=== PATIENT | male | born 1995 | race Caucasian/White ===

== ENCOUNTER 2016-10-11 08:26 | Day surgery (SDC) | payer BC ==
[~2016-10-11 08:26] MED LIST: Lactated Ringers 1,000 ML IV SCH; Lidocaine 1%/Sod Bicarbonate in NS 8.4% 1 ML Syringe IV PRN; Sodium Chloride 0.9% 10 ML Syringe FLUSH PRN
--- NOTE | 2016-10-11 09:05 | PCM.PREANE ---
Preanesthetic Assessment - Procedure Proposed Procedure: Diagnostic colonoscopy - Anesthesia/Transfusion/Family Hx Anesthesia History: No Prior Anesthesia Family History of Anesthesia Reaction: No Transfusion History: No Prior Transfusion(s) Intubation History: Unknown - Review of Systems General: No Symptoms Pulmonary: No Symptoms Cardiovascular: No Symptoms Gastrointestinal: Abdominal pain, Other (GERD) Neurological: No Symptoms Other: Reports: Easy Bruising - Physical Assessment NPO Status Date: 10/11/16 NPO Status Time: 00:30 O2 Sat by Pulse Oximetry: 97 Respiratory Rate: 16 Vital Signs: Last Vital Signs Temp 36.2 C 10/11/16 08:35 Pulse 59 L 10/11/16 08:35 Resp 16 10/11/16 08:35 BP 116/61 10/11/16 08:35 Pulse Ox 97 10/11/16 08:35 Height: 1.98 m Weight: 89.811 kg ASA Class: 2 Mental Status: Alert & Oriented x3 Airway Class: Mallampati = 1 Dentition: Reports: Normal Dentition Thyro-Mental Finger Breadths: 3 Mouth Opening Finger Breadths: 3 ROM/Head Extension: Full Lungs: Clear to auscultation, Normal respiratory effort Cardiovascular: Regular Rate, Regular Rhythm - Allergies Allergies/Adverse Reactions: Allergies Allergy/AdvReac Type Severity Reaction Status Date / Time No Known Allergies Allergy Verified 10/10/16 15:28 - Blood Blood Available: No Product(s) Available: None - Anesthesia Plan Pre-Op Medication Ordered: None - Acknowledgements Anesthesia Type Planned: MAC Pt an Appropriate Candidate for the Planned Anesthesia: Yes Alternatives and Risks of Anesthesia Discussed w Pt/Guardian: Yes Pt/Guardian Understands and Agrees with Anesthesia Plan: Yes PreAnesthesia Questionnaire - Past Health History Medical/Surgical History: Denies Medical/Surgical History HEENT History: Reports: None Cardiovascular History: Reports: None Respiratory History: Reports: None Gastrointestinal History: Reports: GERD, Other (See Below) Other Gastrointestinal History: abdominal pain Genitourinary History: Reports: Other (See Below) Other Genitourinary History: dysuria, left testicular pain OUTDOOR ADVENTURE GUIDES History: Reports: None Musculoskeletal History: Reports: None Neurological History: Reports: None Psychiatric History: Reports: None Endocrine/Metabolic History: Reports: None Hematologic History: Reports: None Immunologic History: Reports: None Oncologic (Cancer) History: Reports: None Dermatologic History: Reports: None - Past Surgical History Head Surgeries/Procedures: Reports: None HEENT Surgical History: Reports: None Cardiovascular Surgical History: Reports: None Respiratory Surgical History: Reports: None GI Surgical History: Reports: None Female Surgical History: Reports: None Male Surgical History: Reports: None Oncologic Surgical History: Reports: None Dermatological Surgical History: Reports: None - SUBSTANCE USE Smoking Status *Q: Never Smoker Second Hand Smoke Exposure: No Days Per Week of Alcohol Use: 0 Recreational Drug Use History: No - HOME MEDS Home Medications: Home Meds . [No Known Home Meds] 10/01/14 [History] - CURRENT (IN HOUSE) MEDS Current Meds: Current Medications Lactated Ringer's (Ringers, Lactated) 1,000 mls @ 125 mls/hr IV ASDIRECTED [facility] Last Admin: 10/11/16 08:45 Dose: 125 mls/hr Lidocaine/Sodium Bicarbonate (Buffered Lidocaine 1% In Ns 8.4%) 0.25 ml IV ONETIME PRN PRN Reason: Prior to IV Start Last Admin: 10/11/16 08:45 Dose: 0.25 ml Sodium Chloride (Saline Flush) 10 ml FLUSH ASDIRECTED PRN PRN Reason: Keep Vein Open
[2016-10-11] MEDS ORDERED: Propofol 200 MG/20 ML SDV ONE ×2 (09:20→10:05)
[2016-10-11] MEDS ORDERED: fentaNYL 100 MCG/2 ML SDV ONE (09:20)
[2016-10-11] MEDS ORDERED: Lidocaine 1% 4 ML ONE (09:21)
--- NOTE | 2016-10-11 10:00 | PCM.OPNOTE ---
- General Post-Op/Procedure Note Date of Surgery/Procedure: 10/11/16 Operative Procedure(s): Colonoscopy with ileal and rectal biopsies Findings: Normal examination, slightly prominent ileal payers patches Pre Op Diagnosis: Chronic diarrhea Post-Op Diagnosis: Same Anesthesia Technique: MAC, Moderate sedation Primary Surgeon: Colby Bloom Pathology: Ileal and rectal biopsies random 2 each EBL in mLs: 0 Complications: None Condition: Good Free Text/Narrative:: After adequate IV sedation and analgesia was obtained patient was placed on his left side. Perianal inspection and digital rectal examination were performed and were normal. A lubricated colonoscope was inserted into the rectum and advanced to the cecum without difficulty. The bowel preparation was excellent. I intubated the terminal ileum and biopsied the terminal ileum randomly 2 with cold forceps for histologic review. The Peyer's patches were slightly prominent. The cecum, right colon, transverse and descending colons were endoscopically normal with no mass lesions or inflammatory changes seen. Similarly the sigmoid and rectum in both views were unremarkable. Because of his history of chronic diarrhea I took 2 random biopsies in the rectum for pathology. Drafting Teacher photographs were taken for the patient and for the record. Air was removed as I finished the procedure which he tolerated well.
--- NOTE | 2016-10-11 10:03 | PCM48HPAN ---
Post Anesthesia Note - EVALUATION WITHIN 48HRS OF ANESTHETIC Vital Signs in Normal Range: Yes Patient Participated in Evaluation: Yes Respiratory Function Stable: Yes Airway Patent: Yes Cardiovascular Function Stable: Yes Hydration Status Stable: Yes Pain Control Satisfactory: Yes Nausea and Vomiting Control Satisfactory: Yes Mental Status Recovered: Yes
[2016-10-11 11:04] VITALS: BP 109/72
== END 2016-10-11 11:20 | disposition home or self-care (01) ==
LOC: JD.SDS 08:26
PROVIDERS: ATTEND Surgery
PROC: 0DBB8ZX Excision of Ileum, Via Natural or Artificial Opening Endoscopic, Diagnostic (ICD-10-PCS; principal; 2016-10-11)
PROC: 0DBP8ZX Excision of Rectum, Via Natural or Artificial Opening Endoscopic, Diagnostic (ICD-10-PCS; 2016-10-11)
DX: K52.9 Noninfective gastroenteritis and colitis, unspecified (principal); K31.89 Other diseases of stomach and duodenum; K21.9 Gastro-esophageal reflux disease without esophagitis; F17.210 Nicotine dependence, cigarettes, uncomplicated; Z79.899 Other long term (current) drug therapy
CPT/HCPCS: 45380; J3010; J7120; J2704

== ENCOUNTER 2016-10-21 21:33 | Emergency (ER) | payer BC ==
[2016-10-21 21:54] VITALS: BP 128/69
--- NOTE | 2016-10-21 23:00 | EDM.PDOC ---
ED HPI GENERAL MEDICAL PROBLEM - General Chief Complaint: Abdominal Pain Stated Complaint: lower abdominal pain Time Seen by Provider: 10/21/16 22:25 Source of Information: Reports: Patient History Limitations: Reports: No Limitations - History of Present Illness INITIAL COMMENTS - FREE TEXT/NARRATIVE: Patient is a 20-year-old male who presents to the ED complaining of lower abdominal and testicular pain. Pain is described as a constant sensation sharp in nature with waxing and waning in intensity. Pain worsens with palpation and also with walking and movement. Patient states pain has been present since December 2015 with no definitive diagnosis. He's underwent multiple rounds of blood work, urinalysiss, STD checks, prostate examinations, along with CT of the abdomen and pelvis, ultrasound of testicles, and as of recent colonoscopy. States most times the pain is intermittent comes and goes. But as of recently the pain is become more constant. He has had episodes of intermittent constipation and diarrhea. He's never been diagnosed with irritable bowel syndrome. He has been more stressed out lately with work and family. Patient states he has a lot of responsibilities. States the character is a of the discomfort is not different but change from intermittent to constant. Denies any known precipitating factors. Denies any recent bad over questionable food, out of country travel, recent sick exposures, fever, chills, nausea/vomiting, chest pain, shortness of breath, dizziness, blood in his stool, history of recent antibiotic use, or any additional complaints. He has been experiencing intermittent burning sensation with urination. States he has the feeling he is not completely emptying his bladder. Duration: Chronic, Constant, Waxing/Waning Location: Reports: Abdomen Quality: Reports: Ache, Sharp, Stabbing Severity: Moderate Improves with: Reports: None Worsens with: Reports: Other (palpation), Movement Context: Denies: Activity, Exercise, Lifting, Sick Contact, Trauma Associated Symptoms: Reports: No Other Symptoms Treatments AUTOMOTIVE BRAKE SPECIALIST: Reports: Other (see below) (none stated) Left Lower Abdomen Pain Score (Numeric/FACES): 6 - Related Data Allergies Allergy/AdvReac Type Severity Reaction Status Date / Time No Known Allergies Allergy Verified 10/21/16 21:49 Home Meds: Home Meds Dicyclomine [Bentyl] 10 mg PO TID PRN #21 cap 10/21/16 [Rx] Past Medical History - Past Health History Medical/Surgical History: Denies Medical/Surgical History HEENT History: Reports: None Cardiovascular History: Reports: None Respiratory History: Reports: None Gastrointestinal History: Reports: GERD, Other (See Below) Other Gastrointestinal History: abdominal pain, colitis Genitourinary History: Reports: Other (See Below) Other Genitourinary History: dysuria, left testicular pain SYSTEM DESIGNER History: Reports: None Musculoskeletal History: Reports: None Neurological History: Reports: None Psychiatric History: Reports: None Endocrine/Metabolic History: Reports: None Hematologic History: Reports: None Immunologic History: Reports: None Oncologic (Cancer) History: Reports: None Dermatologic History: Reports: None - Past Surgical History Head Surgeries/Procedures: Reports: None HEENT Surgical History: Reports: None Cardiovascular Surgical History: Reports: None Respiratory Surgical History: Reports: None GI Surgical History: Reports: Colonoscopy Male Surgical History: Reports: None Oncologic Surgical History: Reports: None Dermatological Surgical History: Reports: None Social & Family History - Tobacco Use Smoking Status *Q: Never Smoker Years of Tobacco use: 1 Packs/Tins Daily: 0.1 Second Hand Smoke Exposure: No - Caffeine Use Caffeine Use: Reports: None - Alcohol Use Days Per Week of Alcohol Use: 0 - Recreational Drug Use Recreational Drug Use: No Drug Use in Last 12 Months: No ED ROS GENERAL - Review of Systems Review Of Systems: See Below Constitutional: Denies: Fever, Chills, Malaise, Weakness, Decreased Appetite Respiratory: Reports: No Symptoms Cardiovascular: Reports: No Symptoms GI/Abdominal: Reports: Abdominal Pain, Constipation (Intermittent), Diarrhea ( Intermittent). Denies: Black Stool, Bloody Stool, Decreased Appetite, Flatus, Melena, Nausea, Vomiting : Reports: Dysuria (Intermittent burning sensation), Hematuria (Questionable) , Urinary Retention. Denies: Discharge, Flank Pain, Frequency, Pain, Urgency Musculoskeletal: Denies: Back Pain Skin: Denies: Rash Neurological: Reports: No Symptoms ED EXAM, GI/ABD - Physical Exam Exam: See Below Exam Limited By: No Limitations General Appearance: Alert, WD/WN, No Apparent Distress Ears: Hearing Grossly Normal Nose: Normal Inspection Throat/Mouth: Normal Voice, No Airway Compromise Neck: Normal Inspection, Supple Respiratory/Chest: No Respiratory Distress, Lungs Clear, Normal Breath Sounds, No Accessory Muscle Use, Chest Non-Tender Cardiovascular: Normal Peripheral Pulses, Regular Rate, Rhythm GI/Abdominal: Normal Bowel Sounds, Soft, No Organomegaly, No Distention, No Abnormal Bruit, No Mass, Tenderness (Suprapubic region) (Male) Exam: No Hernia, Normal Inspection, Normal Prostate, Circumcised, Cremasteric Reflex. No: Inguinal Lymphadenopathy, Penile Lesions, Rash, Scrotal Swelling, Scrotum Tenderness (L), Scrotum Tenderness (R), Testicular Mass, Testicular Tenderness (L), Testicular Tenderness (R), Urethral Discharge Rectal (Males) Exam: Normal Exam, Normal Rectal Tone, Prostate Normal, Heme - Stool. No: Black Stool, Bloody Stool, Tenderness Back Exam: Normal Inspection Extremities: Normal Inspection Neurological: Alert, Oriented, CN II-XII Intact, Normal Cognition, No Motor/ Sensory Deficits Psychiatric: Normal Affect, Normal Mood Skin Exam: Warm, Dry, Intact, Normal Color, No Rash Course - Vital Signs Last Recorded V/S: Last Vital Signs Temp 97.8 F 10/21/16 21:51 Pulse 59 L 10/21/16 21:51 Resp 16 10/21/16 21:51 BP 128/69 10/21/16 21:51 Pulse Ox 100 10/21/16 21:51 - Orders/Labs/Meds Orders: Active Orders 24 hr Category Date Time Status Fecal Occult Blood Collection [RC] ASDIRECTED Care 10/22/16 00:06 Active Abdomen 2V AP Flat Upright [CR] Stat Exams 10/21/16 22:39 Taken Labs: Laboratory Tests 10/21/16 10/21/16 10/21/16 Range/Units 22:50 22:50 23:13 WBC 10.27 H (4.23-9.07) K/mm3 RBC 4.75 (4.63-6.08) M/mm3 Hgb 14.1 (13.7-17.5) gm/L Hct 43.6 (40.1-51.0) % MCV 91.8 (79.0-92.2) fl MCH 29.7 (25.7-32.2) pg MCHC 32.3 (32.2-35.5) g/dl RDW Std Deviation 41.7 (35.1-43.9) fL Plt Count 220 (163-337) K/mm3 MPV 10.1 (9.4-12.3) fl Neut % (Auto) 57.7 (34.0-67.9) % Lymph % (Auto) 30.2 (21.8-53.1) % Stokes % (Auto) 9.6 (5.3-12.2) % Eos % (Auto) 1.6 (0.8-7.0) Baso % (Auto) 0.6 (0.1-1.2) % Neut # (Auto) 5.93 H (1.78-5.38) K/mm3 Lymph # (Auto) 3.10 (1.32-3.57) K/mm3 Stokes # (Auto) 0.99 H (0.30-0.82) K/mm3 Eos # (Auto) 0.16 (0.04-0.54) K/mm3 Baso # (Auto) 0.06 (0.01-0.08) K/mm3 Sodium 139 (136-145) mEq/L Potassium 4.0 (3.5-5.1) mEq/L Chloride 102 (98-107) mEq/L Carbon Dioxide 29 (21-32) mEq/L Anion Gap 12.0 (5-15) BUN 13 (7-18) mg/dL Creatinine 1.0 (0.7-1.3) mg/dL Est Cr Clr Drug Dosing 146.36 mL/min Estimated GFR (MDRD) > 60 (>60) mL/min BUN/Creatinine Ratio 13.0 L (14-18) Glucose 95 (74-106) mg/dL Calcium 9.2 (8.5-10.1) mg/dL Total Bilirubin 0.5 (0.2-1.0) mg/dL AST 29 (15-37) U/L ALT 46 (16-63) U/L Alkaline Phosphatase 75 (46-116) U/L C-Reactive Protein 1.2 H* (<1.0) mg/dL Total Protein 8.1 (6.4-8.2) g/dl Albumin 4.1 (3.4-5.0) g/dl Globulin 4.0 gm/dL Albumin/Globulin Ratio 1.0 (1-2) Urine Color Yellow (Yellow) Urine Appearance Clear (Clear) Urine pH 7.0 (5.0-8.0) Ur Specific [place] 1.015 (1.005-1.030) Urine Protein Negative (Negative) Urine Glucose (UA) Negative (Negative) Urine Ketones Negative (Negative) Urine Occult Blood Negative (Negative) Urine Nitrite Negative (Negative) Urine Bilirubin Negative (Negative) Urine Urobilinogen 0.2 (0.2-1.0) Ur Leukocyte Esterase Negative (Negative) Urine RBC Not seen (0-5) /hpf Urine WBC 0-5 (0-5) /hpf Ur Epithelial Cells 0-5 (0-5) /hpf Urine Bacteria Not seen (FEW) /hpf Urine Mucus Few (FEW) /hpf Meds: Medications Discontinued Medications Generic Name Dose Route Start Last Admin Trade Name Freq PRN Reason Stop Dose Admin Dicyclomine HCl 20 mg 10/21/16 23:40 10/21/16 23:49 Bentyl PO 10/21/16 23:41 20 mg ONETIME ONE Administration - Re-Assessments/Exams Free Text/Narrative Re-Assessment/Exam: Patient states he's had blood work, UAs, STD testing, and stool studies obtained without definitive diagnosis to why he is having pain to his lower abdomen and into his testicle. Patient states the pain started December 2015 with unknown precipitating factors. Pain for the most part has been taking place with palpation and movement. States as of recently the pain has become more constant causing some concern and thus this is why he is in the ED today for further evaluation. Per patient was recently evaluated by his PCP October 19, 2016 with no concerning findings. Will order CBC, chem 14, CRP, UA, and x-ray of the abdomen flat/upright. In addition will obtain a bladder scan post void to see if the patient's have any urinary retention. Hemoccult test was negative for blood. 10/21/16 23:00 Reviewed previous studies obtained over the past 6 months: Colonoscopy, CT abdomen and pelvis, and ultrasound of the testicles. 1. Colonoscopy with biopsies obtained October 11, 2016 operative note: The cecum, right colon, transverse and descending colons were endoscopically normal with no mass lesions or inflammatory changes. The sigmoid and rectum and both views are unremarkable. 2 biopsies in the rectum were obtained for pathology. I am unable to assess pathology report. Per patient, biopsies came back positive for colitis of undetermined etiology. Patient's not undergoing any treatment. 2. Ultrasound of the scrotum and contents obtained September 29, 2016 impression: Left -sided varicocele. Small epididymal cyst on both sides. Testicular ultrasound is otherwise unremarkable. 3. CT the abdomen/pelvis obtained May 05, 2016 impression: Mild bowel wall thickening within the proximal jejunum nonspecific enteritis is possible. Small hiatal hernia with gastroesophageal reflux of contrast. Bladder wall is mildly prominent in thickness which is similar to prior CT exam. Other abnormal findings as noted above. 1128 Post-residual bladder scan revealed 70 mls. Offered medication for pain to which patient denied. X-ray of the abdomen did reveal nonspecific air in stool patterns. No acute findings noted. Final interpretation is pending. 10/21/16 23:41 Will order bentyl 20mg PO. Labs reviewed: CBC and chem 14 were essentially normal. CRP was mildly elevated 1.2. UA revealed no findings concerning for infection. Will discharge patient home with instructions as documented. No further testing will be obtained today. Departure - Departure Time of Disposition: 23:55 Disposition: Home, Self-Care 01 Condition: Good Clinical Impression: Abdominal pain in male, Chronic abdominal pain - Discharge Information Prescriptions: Dicyclomine [Bentyl] 10 mg PO TID PRN #21 cap PRN Reason: Abdominal Pain Instructions: Abdominal Pain, Adult, [id number] Referrals: PCP,None [Primary Care Provider] - Blaine Doherty PA-C [Physician Flow Floor Attendant] - Forms: ED Department Discharge Additional Instructions: Unclear etiology of current complaint. Due to the chronicity of your complaint will have followup with your primary care provider to discuss further options and referrals to GI and urology. Take the Bentyl as prescribed for abdominal pain. Suggest taking one capful of MiraLAX daily with copious amounts of water. Increase your fiber in your diet. Increase daily exercises as well. Refrain from any foods that are aggravating your stomach. Return to the ED for any new or worsening symptoms. - My Orders Last 24 Hours: My Active Orders 10/21/16 22:39 Abdomen 2V AP Flat Upright [CR] Stat 10/22/16 00:06 Fecal Occult Blood Collection [RC] ASDIRECTED - Assessment/Plan Last 24 Hours: My Active Orders 10/21/16 22:39 Abdomen 2V AP Flat Upright [CR] Stat 10/22/16 00:06 Fecal Occult Blood Collection [RC] ASDIRECTED
[2016-10-21] MEDS ORDERED: Dicyclomine 10 MG Cap PO ONE (23:40)
--- NOTE | 2016-10-23 08:10 | CR ---
Abdomen: Supine and upright views of the abdomen were obtained. Comparison: Previous abdominal CT of 05/05/16 is available, no previous abdominal x-ray is available. Findings: Bowel gas pattern appears unremarkable. No abnormal calcifications or discrete soft tissue abnormality is seen. No free air is seen. Bony structures are unremarkable. Impression: 1. Nothing acute is identified on two-view abdominal x-ray. Diagnostic code #1
== END 2016-10-21 23:55 | disposition home or self-care (01) ==
LOC: JD.ED 21:33
DX: R10.32 Left lower quadrant pain (principal); G89.29 Other chronic pain; K21.9 Gastro-esophageal reflux disease without esophagitis
CPT/HCPCS: 36415; 51798; 74020; 80053; 81001; 82270; 85025; 86140; 99284; A9270; 99283

== ENCOUNTER 2018-01-29 04:37 | Emergency (ER) | payer BC ==
[2018-01-29 04:48] VITALS: BP 133/80
[2018-01-29] MEDS ORDERED: Azithromycin 250 MG Tab PO ONE (05:19)
[2018-01-29] MEDS ORDERED: cefTRIAXone 1,000 MG VIAL IM ONE (05:19)
--- NOTE | 2018-01-29 05:23 | EDM.PDOC ---
<Thang Oneal A - Last Filed: 01/29/18 05:30> ED HPI GENERAL MEDICAL PROBLEM - General Chief Complaint: Genitourinary Problem Stated Complaint: URINARY PAIN LOWER ABDOMINAL PAIN Time Seen by Provider: 01/29/18 05:14 Source of Information: Reports: Patient History Limitations: Reports: No Limitations - History of Present Illness INITIAL COMMENTS - FREE TEXT/NARRATIVE: 22 y/o M with chief complaint dysuria. He has had dysuria previously and had extensive testing including multiple rounds of labs, UA, STD testing, testicular u/s (neg) and CT a/p (neg). This time around he's had symptoms for almost a week. Has pain with urination and frequency. Feels like there's debris in his urine. No fever. Mild lower abdominal discomfort, no pain. No vomiting. Sexually active, last intercourse was about 2 months ago. No hx STD. No penile discharge, testicular pain, or scrotal swelling. penile Pain Score (Numeric/FACES): 3 - Related Data Allergies Allergy/AdvReac Type Severity Reaction Status Date / Time No Known Allergies Allergy Verified 01/29/18 04:47 Home Meds: Home Meds Cranberry Conc/Ascorbic Acid [Cystex Cranberry] 1 dose PO DAILY PRN 01/29/18 [ History] Levofloxacin [Levaquin] 500 mg PO DAILY #10 tablet 01/29/18 [Rx] Past Medical History - Past Health History Medical/Surgical History: Denies Medical/Surgical History HEENT History: Reports: None Cardiovascular History: Reports: None Respiratory History: Reports: None Gastrointestinal History: Reports: GERD, Other (See Below) Other Gastrointestinal History: abdominal pain, colitis Genitourinary History: Reports: Other (See Below) Other Genitourinary History: dysuria, left testicular pain 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 HEALTH REGISTERED NURSE History: Reports: None Musculoskeletal History: Reports: None Neurological History: Reports: None Psychiatric History: Reports: None Endocrine/Metabolic History: Reports: None Hematologic History: Reports: None Immunologic History: Reports: None Oncologic (Cancer) History: Reports: None Dermatologic History: Reports: None - Past Surgical History Head Surgeries/Procedures: Reports: None HEENT Surgical History: Reports: None Cardiovascular Surgical History: Reports: None Respiratory Surgical History: Reports: None GI Surgical History: Reports: Colonoscopy Male Surgical History: Reports: None Oncologic Surgical History: Reports: None Dermatological Surgical History: Reports: None Social & Family History - Family History Family Medical History: Noncontributory - Tobacco Use Smoking Status *Q: Current Some Day Smoker Years of Tobacco use: 3 Packs/Tins Daily: 0.1 - Caffeine Use Caffeine Use: Reports: Coffee - Recreational Drug Use Recreational Drug Use: No ED ROS GENERAL - Review of Systems Review Of Systems: See Below Constitutional: Denies: Fever HEENT: Reports: No Symptoms Respiratory: Denies: Cough Cardiovascular: Denies: Chest Pain Endocrine: Reports: No Symptoms GI/Abdominal: Reports: No Symptoms : Reports: Dysuria. Denies: Flank Pain Musculoskeletal: Reports: No Symptoms Skin: Reports: No Symptoms Neurological: Reports: No Symptoms ED EXAM, RENAL/ - Physical Exam Exam: See Below Exam Limited By: No Limitations General Appearance: Alert, WD/WN, No Apparent Distress Eye Exam: Bilateral Eye: Normal Inspection Ears: Normal External Exam Nose: Normal Inspection Throat/Mouth: Normal Inspection, Normal Oropharynx, Normal Voice Head: Atraumatic, Normocephalic Neck: Normal Inspection, Supple, Non-Tender, Full Range of Motion Respiratory/Chest: No Respiratory Distress, Lungs Clear, Normal Breath Sounds, Chest Non-Tender Cardiovascular: Normal Peripheral Pulses, Regular Rate, Rhythm, No Murmur GI/Abdominal: Normal Bowel Sounds, Soft, Non-Tender. No: Rebound (Male) Exam: Normal Inspection, Circumcised. No: Penile Lesions, Scrotal Swelling, Scrotum Tenderness (L), Scrotum Tenderness (R), Urethral Discharge Back Exam: Normal Inspection. No: CVA Tenderness (L), CVA Tenderness (R) Extremities: Normal Inspection Neurological: Alert, Oriented, Normal Cognition, No Motor/Sensory Deficits Psychiatric: Normal Affect, Normal Mood Skin Exam: Warm, Dry, Intact, Normal Color, No Rash Course - Vital Signs Last Recorded V/S: Last Vital Signs Temp 36.7 C 01/29/18 04:40 Pulse 80 01/29/18 04:40 Resp 18 01/29/18 04:40 BP 133/80 01/29/18 04:40 Pulse Ox 97 01/29/18 04:40 - Orders/Labs/Meds Orders: Active Orders 24 hr Category Date Time Status CULTURE URINE [RM] Stat Lab 01/29/18 04:45 Received Labs: Laboratory Tests 01/29/18 01/29/18 Range/Units 04:45 06:15 Urine Color Dark yellow (Yellow) Urine Appearance Cloudy H (Clear) Urine pH 6.5 (5.0-8.0) Ur Specific [place] > or = 1.030 (1.005-1.030) Urine Protein 3+ H (Negative) Urine Glucose (UA) Negative (Negative) Urine Ketones Negative (Negative) Urine Occult Blood 3+ H (Negative) Urine Nitrite Negative (Negative) Urine Bilirubin 1+ H (Negative) Urine Urobilinogen 0.2 (0.2-1.0) Ur Leukocyte Esterase Trace H (Negative) Urine RBC 10-20 H (0-5) /hpf Urine WBC 75-100 H (0-5) /hpf Ur Epithelial Cells 0-5 (0-5) /hpf Urine Bacteria Moderate H (FEW) /hpf Urine Mucus Moderate H (FEW) /hpf C trachomatis DNA (PCR) Detected H N gonorrhoeae DNA (PCR) Not detected Meds: Medications Discontinued Medications Generic Name Dose Route Start Last Admin Trade Name Alicia PRN Reason Stop Dose Admin Azithromycin 1,000 mg 01/29/18 05:19 01/29/18 05:53 Zithromax PO 01/29/18 05:20 1,000 mg ONETIME ONE Administration Ceftriaxone Sodium 1,000 mg 01/29/18 05:19 01/29/18 05:53 Rocephin IM 01/29/18 05:20 Not Given ONETIME ONE Ceftriaxone Sodium 1 gm/ 0 gm 01/29/18 05:45 01/29/18 05:53 Lidocaine HCl 2.1 ml IM 1 inj Q24H ISABEL Administration Lidocaine HCl Confirm 01/29/18 05:27 01/29/18 05:54 Xylocaine-Mpf 1% Administered 01/29/18 05:28 Not Given Dose 4 mls @ as directed .ROUTE .STK-MED ONE - Re-Assessments/Exams Free Text/Narrative Re-Assessment/Exam: 01/29/18 05:33 UA shows microscopic hematuria, 75-100 WBC per HPF, +trace LCE, moderate bacteria. Concerning for UTI. He has no symptoms of pyelo. Will send dirty UA to check for STD's and will cover meanwhile with ceftriaxone and azithro. He already has f/u scheduled in clinic tomorrow. No exam evidence of epidydimitis. Discussed return precautions. Departure - Departure Time of Disposition: 05:21 Disposition: Home, Self-Care 01 Clinical Impression: UTI, Urinary tract infectious disease - Discharge Information Prescriptions: Levofloxacin [Levaquin] 500 mg PO DAILY #10 tablet Instructions: Urinary Tract Infection, Adult Referrals: Blaine Doherty PA-C [Primary Care Provider] - Forms: ED Department Discharge Additional Instructions: 1. Take levaquin as prescribed 2. Follow up with Leigh Ann in clinic tomorrow to review results of your STD testing 3. Take levaquin as prescribed 4. Return to the ED if you have fever, worsening pain, or other concerning symptoms. <Driss Kovacs - Last Filed: 01/29/18 12:45> Course - Re-Assessments/Exams Free Text/Narrative Re-Assessment/Exam: 01/29/18 12:45 Notified that the patient's Chlamydia trachomatis has returned positive. Gonorrhea is negative. I see that the patient was already treated with 1 g azithromycin, therefore no further treatment is indicated.
[2018-01-29] MEDS ORDERED: Lidocaine 1% 4 ML ONE (05:27)
[2018-01-29] MEDS ORDERED: cefTRIAXone 1 GM, Lidocaine 1% 2.1 ML IM SCH ×2 (05:45)
[2018-01-29 08:51] LABS: C. TRACHOMATIS BY PCR DETECTED; N. GONORRHOEAE BY PCR NOT DETECTED
== END 2018-01-29 06:14 | disposition home or self-care (01) ==
LOC: JD.ED 04:37
DX: N39.0 Urinary tract infection, site not specified (principal); F17.210 Nicotine dependence, cigarettes, uncomplicated
CPT/HCPCS: 81001; 87086; 87491; 87591; 96372; 99283; A9270; J0696; 99284

== ENCOUNTER 2019-01-09 14:45 | Emergency (ER) | payer BC ==
[2019-01-09 15:02] VITALS: BP 133/63; PULSE 72
--- NOTE | 2019-01-09 17:49 | EDM.PDOC ---
ED HPI GENERAL MEDICAL PROBLEM - General Chief Complaint: Abdominal Pain Stated Complaint: KIDNEY STONE Time Seen by Provider: 01/09/19 17:19 Source of Information: Reports: Patient, RN Notes Reviewed History Limitations: Reports: No Limitations - History of Present Illness INITIAL COMMENTS - FREE TEXT/NARRATIVE: Patient is a 23-year-old female who presents to the ED for the evaluation of a possible kidney stone. Patient denies any history of kidney stone. He notes that he had pain in his low back that roughly started 2-3 months ago. But he states that pain worsened now and radiates into his left lower quadrant and along the beltline today. 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 He thinks that this is the issue that caused the back pain. He was told from other coworkers that with this pain radiating into his abdomen that a verbal could be a kidney stone. Patient thinks he is noticed some blood in his urine as well, he denies any fever/chills, nausea/vomiting. He rates the pain as a sharp stabbing type of pain this comes in waves. At time of evaluation his pain as a 3 or 4-10, he states when it is at its worse it is it a 12 out of 10. He does note some dysuria, frequency and urgency as well he denies any urethral discharge, and states he is monogamous with a female for the last 3 years and does not use condoms. He denies chance of STDs at this time. He further notes that he had a normal BM just prior to arrival to ED. Lower Abdomen Pain Score (Numeric/FACES): 4 - Related Data Allergies Allergy/AdvReac Type Severity Reaction Status Date / Time No Known Allergies Allergy Verified 01/09/19 15:02 Past Medical History - Past Health History Medical/Surgical History: Denies Medical/Surgical History HEENT History: Reports: None Cardiovascular History: Reports: None Respiratory History: Reports: None Gastrointestinal History: Reports: GERD, Other (See Below) Other Gastrointestinal History: abdominal pain, colitis Genitourinary History: Reports: Other (See Below) Other Genitourinary History: dysuria, left testicular pain [employer]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 Musculoskeletal History: Reports: None Neurological History: Reports: None Psychiatric History: Reports: None Endocrine/Metabolic History: Reports: None Hematologic History: Reports: None Immunologic History: Reports: None Oncologic (Cancer) History: Reports: None Dermatologic History: Reports: None - Infectious Disease History Infectious Disease History: Reports: None - Past Surgical History Head Surgeries/Procedures: Reports: None HEENT Surgical History: Reports: None Cardiovascular Surgical History: Reports: None Respiratory Surgical History: Reports: None GI Surgical History: Reports: Colonoscopy Male Surgical History: Reports: None Oncologic Surgical History: Reports: None Dermatological Surgical History: Reports: None Social & Family History - Family History Family Medical History: Noncontributory - Tobacco Use Smoking Status *Q: Never Smoker - Caffeine Use Caffeine Use: Reports: Coffee - Recreational Drug Use Recreational Drug Use: No ED ROS GENERAL - Review of Systems Review Of Systems: See Below Constitutional: Denies: Fever, Chills HEENT: Reports: No Symptoms Respiratory: Denies: Shortness of Breath Cardiovascular: Denies: Chest Pain Endocrine: Reports: No Symptoms GI/Abdominal: Reports: Abdominal Pain (LLQ). Denies: Nausea, Vomiting : Reports: Dysuria, Flank Pain (Left), Frequency, Urgency. Denies: Discharge Musculoskeletal: Reports: Back Pain (Low back pain) Skin: Reports: No Symptoms Neurological: Reports: No Symptoms Psychiatric: Reports: No Symptoms Hematologic/Lymphatic: Reports: No Symptoms Immunologic: Reports: No Symptoms ED EXAM, RENAL/ - Physical Exam Exam: See Below Exam Limited By: No Limitations General Appearance: Alert, WD/WN, No Apparent Distress Eye Exam: Bilateral Eye: EOMI, Normal Inspection, PERRL Throat/Mouth: Normal Inspection, Normal Lips, Normal Teeth, Normal Gums, Normal Oropharynx, Normal Voice, No Airway Compromise Head: Atraumatic, Normocephalic Neck: Normal Inspection, Supple, Non-Tender, Full Range of Motion Respiratory/Chest: No Respiratory Distress, Lungs Clear, Normal Breath Sounds, No Accessory Muscle Use, Chest Non-Tender Cardiovascular: Normal Peripheral Pulses, Regular Rate, Rhythm, No Murmur GI/Abdominal: Normal Bowel Sounds, Soft, No Distention, No Mass, Tender ( suprapubic tenderness) (Male) Exam: Deferred Extremities: Normal Inspection, Normal Capillary Refill Neurological: Alert, Oriented, Normal Cognition, No Motor/Sensory Deficits Psychiatric: Normal Affect, Normal Mood Skin Exam: Warm, Dry, Intact, Normal Color, No Rash Course - Vital Signs Last Recorded V/S: Last Vital Signs Temp 99.3 F 01/09/19 14:59 Pulse 72 01/09/19 14:59 Resp 16 01/09/19 14:59 BP 133/63 01/09/19 14:59 Pulse Ox 97 01/09/19 14:59 - Orders/Labs/Meds Orders: Active Orders 24 hr Category Date Time Status CULTURE URINE [RM] Stat Lab 01/09/19 17:52 Received Labs: Laboratory Tests 01/09/19 Range/Units 17:03 Urine Color Yellow (Yellow) Urine Appearance Clear (Clear) Urine pH 6.5 (5.0-8.0) Ur Specific [place] 1.020 (1.005-1.030) Urine Protein Negative (Negative) Urine Glucose (UA) Negative (Negative) Urine Ketones Negative (Negative) Urine Occult Blood Negative (Negative) Urine Nitrite Negative (Negative) Urine Bilirubin Negative (Negative) Urine Urobilinogen 0.2 (0.2-1.0) Ur Leukocyte Esterase Trace H (Negative) Urine RBC Not seen (0-5) /hpf Urine WBC 0-5 (0-5) /hpf Ur Squamous Epith Cells 0-5 (0-5) /hpf Urine Bacteria Not seen (FEW) /hpf Urine Mucus Not seen (FEW) /hpf - Re-Assessments/Exams Free Text/Narrative Re-Assessment/Exam: 01/09/19 17:56 Patient presents to the ED for the evaluation of left-sided flank and groin pain. He does have some mild suprapubic tenderness on examination, his urinalysis was impressive only for a trace amount of leukocyte esterase. His urine will be sent for culture for further evaluation. At this point in time is likely that he is suffering from musculoskeletal injury due to his job, he will be given general recommendations and discharged home. Departure - Departure Time of Disposition: 17:59 Disposition: Home, Self-Care 01 Condition: Fair Clinical Impression: Acute left flank pain Back pain Qualifiers: Back pain location: low back pain Chronicity: acute Back pain laterality: left Sciatica presence: without sciatica Qualified Code(s): M54.5 - Low back pain - Discharge Information *PRESCRIPTION DRUG MONITORING PROGRAM REVIEWED*: No *COPY OF PRESCRIPTION DRUG MONITORING REPORT IN PATIENT MARAL: No Instructions: Back Exercises, [id number], Musculoskeletal Pain, Flank Pain, Adult, [id number] Referrals: Sarah Caba PA-C [Primary Care Provider] - Forms: ED Department Discharge Additional Instructions: You have been evaluated in the ED for your low back / left flank pain. Please use ice/heat as tolerated to the affected area. You may take Tylenol 500 mg or ibuprofen 600mg q6 hrs for pain relief. Please do so until you have a tolerable level of pain with activity. Do not exceed 4000mg Tylenol or 3200mg ibuprofen in a 24 hour time period. Your urinalysis demonstrated a small amount of leukocyte Estrace, but otherwise was essentially within normal limits, and this will be sent for culture for confirmation to see if you need an antibiotic for a possible UTI. Please return to ED if your symptoms should change or worsen. - My Orders Last 24 Hours: My Active Orders 01/09/19 17:52 CULTURE URINE [RM] Stat - Assessment/Plan Last 24 Hours: My Active Orders 01/09/19 17:52 CULTURE URINE [RM] Stat
== END 2019-01-09 18:18 | disposition home or self-care (01) ==
LOC: JD.ED 14:45
DX: R10.32 Left lower quadrant pain (principal); M54.5 Low back pain
CPT/HCPCS: 81001; 87086; 99282; 99284

== ENCOUNTER 2019-01-13 12:18 | Emergency (ER) | payer BC ==
[2019-01-13 12:30] VITALS: BP 117/73; PULSE 70
== END 2019-01-13 14:08 ==
LOC: JD.ED 12:18
DX: Z53.21 Procedure and treatment not carried out due to patient leaving prior to being seen by health care provider (principal)

== ENCOUNTER 2020-04-11 18:07 | Emergency (ER) | payer BC, OTHER ==
--- NOTE | 2020-04-11 19:01 | EDM.PDOC ---
<FermínDriss A - Last Filed: 04/11/20 20:16> ED HPI GENERAL MEDICAL PROBLEM - General Chief Complaint: Chest Pain Stated Complaint: TIGHTNESS IN CHEST Time Seen by Provider: 04/11/20 18:17 - Related Data Allergies Allergy/AdvReac Type Severity Reaction Status Date / Time No Known Allergies Allergy Verified 04/11/20 18:20 Home Meds: Home Meds Lansoprazole [Prevacid] 15 mg PO DAILY 04/11/20 [History] Course - Re-Assessments/Exams Free Text/Narrative Re-Assessment/Exam: 04/11/20 20:16 Portable chest radiograph is read by [facility] as "No acute findings." The patient's CBC, CMP, and troponin are all within normal limits/unremarkable. I will discharge him home. Departure - Departure Time of Disposition: 20:17 Disposition: Home, Self-Care 01 Clinical Impression: Atypical chest pain Instructions: Nonspecific Chest Pain, Adult, [id number] Referrals: PCP,None [Primary Care Provider] - Forms: ED Department Discharge Additional Instructions: Your ED work up today has not shown heart attack or any appreciable heart or lung abnormality. Be aware that vaping does have risk, is not recomended from a medical or health standpoint. Try eat a cardiac healthy diet. Try exercise regularly, at least several times a week. Follow up clinic for a complete physical if symptoms do not resolve over the next few days as expected. <Moris Oneal - Last Filed: 04/12/20 07:21> ED HPI GENERAL MEDICAL PROBLEM - General Source of Information: Reports: Patient, RN Notes Reviewed - History of Present Illness INITIAL COMMENTS - FREE TEXT/NARRATIVE: 24 yr old has had some mild achy ant chest discomfort on and off for awhile, more the last 2 or 3 days. No discomfort at this time. Occasional palpitations. No known hx of diabetes, CAD, HTN or other known health problems. He does not currently smoke, he quit about 1 yr ago after smoking for about 4 yrs. He does smoke marijuana somewhat regularly. He also does vap somewhat frequently but not every day. No recent cough, fever, chills or difficulty breathing. 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 Musculoskeletal History: Reports: None Neurological History: Reports: None Psychiatric History: Reports: None Endocrine/Metabolic History: Reports: None Hematologic History: Reports: None Immunologic History: Reports: None Oncologic (Cancer) History: Reports: None Dermatologic History: Reports: None - Infectious Disease History Infectious Disease History: Reports: None - Past Surgical History Cardiovascular Surgical History: Reports: None Respiratory Surgical History: Reports: None GI Surgical History: Reports: Colonoscopy Oncologic Surgical History: Reports: None Social & Family History - Family History Family Medical History: No Pertinent Family History - Tobacco Use Tobacco Use Status *Q: Former Tobacco User Used Tobacco, but Quit: Yes Month/Year Tobacco Last Used: 2018 - Caffeine Use Caffeine Use: Reports: Tea - Recreational Drug Use Recreational Drug Use: No ED ROS GENERAL - Review of Systems Review Of Systems: See Below Constitutional: Denies: Fever, Chills, Diaphoresis HEENT: Reports: No Symptoms Respiratory: Denies: Shortness of Breath, Pleuritic Chest Pain, Cough Cardiovascular: Reports: Chest Pain GI/Abdominal: Denies: Abdominal Pain, Nausea, Vomiting Musculoskeletal: Denies: Shoulder Pain, Arm Pain, Back Pain Skin: Reports: No Symptoms Neurological: Reports: No Symptoms ED EXAM, GENERAL - Physical Exam Exam: See Below General Appearance: Alert, No Apparent Distress Throat/Mouth: Normal Inspection Neck: Supple Respiratory/Chest: No Respiratory Distress, Lungs Clear, Normal Breath Sounds Cardiovascular: Regular Rate, Rhythm GI/Abdominal: Soft, Non-Tender Extremities: Normal Inspection. No: Pedal Edema, Leg Pain, Increased Warmth, Redness Neurological: Alert, Oriented, No Motor/Sensory Deficits Skin Exam: Warm, Normal Color #1 Interpretation EKG Date: 04/11/20 Rhythm: NSR (moderate artifact) Rate (Beats/Min): 70 [place]: Normal P-Wave: Present QRS: Other (incomplete RBBB) Course - Vital Signs Last Recorded V/S: Last Vital Signs Temp 97.8 F 04/11/20 18:15 Pulse 71 04/11/20 20:20 Resp 16 04/11/20 20:20 BP 108/63 04/11/20 20:20 Pulse Ox 99 04/11/20 20:20 - Orders/Labs/Meds Orders: Active Orders 24 hr Category Date Time Status Chest 1V Frontal [CR] Stat Exams 04/11/20 19:22 Taken Labs: Laboratory Tests 04/11/20 04/11/20 Range/Units 19:08 19:08 WBC 8.23 (4.23-9.07) K/mm3 RBC 4.81 (4.63-6.08) M/mm3 Hgb 14.4 (13.7-17.5) gm/dl Hct 45.2 (40.1-51.0) % MCV 94.0 H (79.0-92.2) fl MCH 29.9 (25.7-32.2) pg MCHC 31.9 L (32.2-35.5) g/dl RDW Std Deviation 42.4 (35.1-43.9) fL Plt Count 218 (163-337) K/mm3 MPV 10.8 (9.4-12.3) fl Neut % (Auto) 63.6 (34.0-67.9) % Lymph % (Auto) 26.7 (21.8-53.1) % [place] % (Auto) 7.3 (5.3-12.2) % Eos % (Auto) 1.9 (0.8-7.0) Baso % (Auto) 0.4 (0.1-1.2) % Neut # (Auto) 5.23 (1.78-5.38) K/mm3 Lymph # (Auto) 2.20 (1.32-3.57) K/mm3 [place] # (Auto) 0.60 (0.30-0.82) K/mm3 Eos # (Auto) 0.16 (0.04-0.54) K/mm3 Baso # (Auto) 0.03 (0.01-0.08) K/mm3 Sodium 138 (136-145) mEq/L Potassium 3.7 (3.5-5.1) mEq/L Chloride 102 (98-107) mEq/L Carbon Dioxide 29 (21-32) mEq/L Anion Gap 10.7 (5-15) BUN 15 (7-18) mg/dL Creatinine 1.1 (0.7-1.3) mg/dL Est Cr Clr Drug Dosing 135.02 mL/min Estimated GFR (MDRD) > 60 (>60) mL/min BUN/Creatinine Ratio 13.6 L (14-18) Glucose 88 (74-106) mg/dL Calcium 9.4 (8.5-10.1) mg/dL Total Bilirubin 0.5 (0.2-1.0) mg/dL AST 21 (15-37) U/L ALT 36 (16-63) U/L Alkaline Phosphatase 68 (46-116) U/L Troponin I < 0.017 (0.00-0.056) ng/mL Total Protein 7.9 (6.4-8.2) g/dl Albumin 4.0 (3.4-5.0) g/dl Globulin 3.9 gm/dL Albumin/Globulin Ratio 1.0 (1-2) - Re-Assessments/Exams Free Text/Narrative Re-Assessment/Exam: 04/11/20 19:04. Change of shift. Due to abnormal EKG have ordered CBC, CMP, trop and CXR. Will have Dr Kovacs watch for his labs and Xray. The expectation is that this will all be normal. Discharge instr. as documented. Will be revised if necessary. Departure - Departure Condition: Fair Sepsis Event Note (ED) - Evaluation Sepsis Screening Result: No Definite Risk - Focused Exam Vital Signs: Vital Signs Pulse Resp BP Pulse Ox 04/11/20 20:20 71 16 108/63 99 - My Orders Last 24 Hours: My Active Orders 04/11/20 19:22 Chest 1V Frontal [CR] Stat - Assessment/Plan Last 24 Hours: My Active Orders 04/11/20 19:22 Chest 1V Frontal [CR] Stat
[2020-04-11 20:24] VITALS: BP 108/63; PULSE 71
--- NOTE | 2020-04-12 08:14 | CR ---
Chest: Portable view of the chest was obtained. Comparison: Prior chest x-ray of 10/01/14. Heart size and mediastinum are normal. Lungs are clear with no acute parenchymal change. Bony structures are grossly intact. Impression: 1. Nothing acute is appreciated on portable chest x-ray. Diagnostic code #1 I agree with preliminary report from [facility], finalized on 04/11/20, 8:43 PM SENSITOMETRIST
== END 2020-04-11 20:20 | disposition home or self-care (01) ==
LOC: JD.ED 18:07
DX: R07.89 Other chest pain (principal); I45.10 Unspecified right bundle-branch block; Z87.891 Personal history of nicotine dependence
CPT/HCPCS: 36415; 71045; 71045-26; 80053; 84484; 85025; 93005; 93010; 99283; 99285-25

== ENCOUNTER → 2020-12-16 | Day surgery (SDC) | payer SELFPAY ==
[~2020-12-16] MED LIST changes: +Lidocaine 1% 4 ML ONE; +Lidocaine 1%/Sod Bicarbonate in NS 8.4% 1 ML Syringe IDERM PRN; -Lidocaine 1%/Sod Bicarbonate in NS 8.4% 1 ML Syringe IV PRN; +Midazolam 1 MG/ML 2 ML SDV ONE; +Propofol 200 MG/20 ML SDV ONE
--- NOTE | 2020-12-16 09:29 | PCM.PREANE ---
Preanesthetic Assessment - Procedure Proposed Procedure: EGD - Anesthesia/Transfusion/Family Hx Anesthesia History: No Prior Anesthesia Family History of Anesthesia Reaction: No Transfusion History: No Prior Transfusion(s) Intubation History: Unknown - Review of Systems General: No Symptoms Pulmonary: No Symptoms Cardiovascular: Chest Pain ("related too heart burn") Gastrointestinal: Abdominal Pain (related too GERD) Neurological: No Symptoms Other: Reports: None - Physical Assessment NPO Status Date: 12/15/20 NPO Status Time: 00:00 Height: 1.98 m Weight: 108 kg ASA Class: 2 Mental Status: Alert & Oriented x3 Airway Class: Mallampati = 1 Dentition: Reports: [place](s) Thyro-Mental Finger Breadths: 3 Mouth Opening Finger Breadths: 2 ROM/Head Extension: Full Lungs: Clear to Auscultation, Normal Respiratory Effort Cardiovascular: Regular Rate, Regular Rhythm - Allergies Allergies/Adverse Reactions: Allergies Allergy/AdvReac Type Severity Reaction Status Date / Time No Known Allergies Allergy Verified 12/15/20 16:10 - Blood Blood Available: No Product(s) Available: None - Anesthesia Plan Pre-Op Medication Ordered: None - Acknowledgements Anesthesia Type Planned: MAC Pt an Appropriate Candidate for the Planned Anesthesia: Yes Alternatives and Risks of Anesthesia Discussed w Pt/Guardian: Yes Pt/Guardian Understands and Agrees with Anesthesia Plan: Yes PreAnesthesia Questionnaire - Past Health History Medical/Surgical History: Denies Medical/Surgical History HEENT History: Reports: None Cardiovascular History: Reports: None Respiratory History: Reports: None Gastrointestinal History: Reports: GERD, Other (See Below) Other Gastrointestinal History: abdominal pain, colitis Genitourinary History: Reports: Other (See Below) Other Genitourinary History: dysuria, left testicular pain 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: Reports: None Musculoskeletal History: Reports: None Neurological History: Reports: None Psychiatric History: Reports: None Endocrine/Metabolic History: Reports: None Hematologic History: Reports: None Immunologic History: Reports: None Oncologic (Cancer) History: Reports: None Dermatologic History: Reports: None - Infectious Disease History Infectious Disease History: Reports: None - Past Surgical History Cardiovascular Surgical History: Reports: None Respiratory Surgical History: Reports: None GI Surgical History: Reports: Colonoscopy Oncologic Surgical History: Reports: None - SUBSTANCE USE Tobacco Use Status *Q: Former Tobacco User Tobacco Use Within Last Twelve Months: No Second Hand Smoke Exposure: No Days Per Week of Alcohol Use: 1 Number of Drinks Per Day: 0 Total Drinks Per Week: 0 Recreational Drug Use History: No - HOME MEDS Home Medications: Home Meds Pantoprazole Sodium [Protonix] 40 mg PO DAILY 12/15/20 [History] Sucralfate [Carafate] 1 gm PO QID 12/15/20 [History] - CURRENT (IN HOUSE) MEDS Current Meds: Current Medications Lactated Ringer's (Ringers, Lactated) 1,000 mls @ 125 mls/hr IV ASDIRECTED ISABEL Stop: 12/16/20 23:00 Lidocaine/Sodium Bicarbonate (Lidocaine 1%/Sod Bicarbonate In Ns 8.4% 1 Ml Syringe) 0.25 ml IDERM ONETIME PRN PRN Reason: Prior to IV Start Stop: 12/16/20 18:00 Sodium Chloride (Sodium Chloride 0.9% 10 Ml Syringe) 10 ml FLUSH ASDIRECTED PRN PRN Reason: Keep Vein Open Stop: 12/16/20 18:00 Discontinued Medications Midazolam HCl (Midazolam 1 Mg/Ml 2 Ml Sdv) Confirm Administered Dose 2 mg .ROUTE .STK-MED ONE Stop: 12/16/20 08:54 Propofol (Propofol 200 Mg/20 Ml Sdv) Confirm Administered Dose 200 mg .ROUTE .STK-MED ONE Stop: 12/16/20 08:53
--- NOTE | 2020-12-16 09:55 | PCM.PRNOTE ---
- Free Text/Narrative Note: Date: 12/16/2020 Procedure: diagnostic esophagogastroduodenoscopy Indication: heartburn, bloating, abdominal fullness Endoscopist: Les Mckinley MD Findings: intermittent relaxation of lower esophageal sphincter seen on retroflexion within the stomach. No abnormal findings. Detailed Report: The patient was taken to the endoscopy suite and placed in left lateral decubitus position. Timeout was performed and monitored anesthesia care was initiated. A bite-block was placed, and the endoscope was inserted into the mouth and advanced to the distal duodenum with ease. Duodenal mucosa appeared normal with hong yellow bile present. Sample biopsies with cold forceps were obtained from duodenal mucosa at the level of the bulb. The scope was withdrawn into the stomach. Gastric mucosa appeared grossly normal throughout. Several biopsies were obtained from antral mucosa with cold forceps. On retroflexion, no significant hiatal hernia was appreciated. A biopsy of the gastric cardia was obtained with cold forceps. There did appear to be some sliding of the gastroesophageal junction with relaxation of the lower esophageal sphincter. The scope was then withdrawn into the distal esophagus. The Z-line appeared normal and there were no gross changes to indicate inflammation. A sample bi opsy of distal esophageal mucosa was obtained. Air was suctioned from the stomach prior to withdrawal of the scope. The remainder of the esophagus appeared normal as the scope was withdrawn. The patient tolerated the procedure well.
[2020-12-16 16:19] VITALS: BP 117/79; PULSE 74
== END | disposition home or self-care (01) ==
LOC: JD.SDS 08:00
PROVIDERS: ATTEND Surgery
DX: K21.00 Gastro-esophageal reflux disease with esophagitis, without bleeding (principal); K29.50 Unspecified chronic gastritis without bleeding; Z87.891 Personal history of nicotine dependence
CPT/HCPCS: 43239; J2250; J2704; J7120; 00731

== ENCOUNTER 2023-08-13 20:16 | Emergency (ER) | payer BC ==
[2023-08-13] MEDS: Sodium Chloride 0.9% 10 ML Syringe FLUSH PRN (21:00)
[2023-08-13] MEDS: methylPREDNISolone Sodium Succinate 125 MG/2 ML SDV IVPUSH ONE (21:14)
[2023-08-13] MEDS: Ketorolac 30 MG/ML SDV IVPUSH ONE (21:16)
[2023-08-13 23:48] VITALS: BP 124/75; PULSE 69
== END 2023-08-13 23:30 | disposition home or self-care (01) ==
LOC: JD.ED 20:16
DX: M54.16 Radiculopathy, lumbar region (principal); M54.42 Lumbago with sciatica, left side
CPT/HCPCS: 72131; 96374; 96375; 99283; J1885; J2930; J3360; J3490; 99284